=== PATIENT | female | born 1980 | race Caucasian/White ===

== ENCOUNTER → 2016-09-21 | Outpatient (CLI) | payer MEDICARE ==
[2016-09-21 10:19] LABS: BUN/CREATININE RATIO 10 (0-10)
== END ==
LOC: LAB 08:59
PROVIDERS: Nurse Practitioner Family
DX: R05 Cough (principal); M54.2 Cervicalgia; M54.9 Dorsalgia, unspecified; R53.83 Other fatigue; I10 Essential (primary) hypertension; B19.20 Unspecified viral hepatitis C without hepatic coma
CPT/HCPCS: 36415; 71020; 72050; 72072; 72110; 80053; 80061; 80074; 82150; 83690; 84443